=== PATIENT | male | born 1955 | race African-American/Black ===

== ENCOUNTER 2021-08-08 22:10 | Emergency (ER) | payer MEDICAID ==
[~2021-08-08] VITALS: Ht 198.1 cm; Wt 118.0 kg
[2021-08-09 03:13] LABS: CLARITY URINE CLOUDY (CLEAR); COLOR URINE DARK YELLOW (YELLOW); KETONES URINE TRACE (NEGATIVE); LEUKOCYTE ESTERASE URINE TRACE (NEGATIVE); NITRITE URINE NEGATIVE (NEGATIVE); OCCULT BLOOD URINE 3+ (NEGATIVE); PROTEIN URINE 2+ (NEGATIVE); SPECIFIC GRAVITY URINE 1.013 (1.005-1.030); UROBILINOGEN URINE 0.2 E.U./dL (0.2-1.0)
[2021-08-09 03:52] LABS: BASOPHILS % 0.5 % (0.0-2.0); HEMATOCRIT. 41.6 % (42.0-52.0); HEMOGLOBIN. 14.1 g/dL (14.0-18.0); LYMPHOCYTES % 7.2 % (20.0-50.0); MEAN CORPUSCULAR HEMOGLOBIN 31.2 pg (28.0-32.0); MEAN CORPUSCULAR VOLUME 92.4 fL (80.0-94.0); MEAN PLATELET VOLUME 9.4 fl (7.4-10.4); MONOCYTES % 4.3 % (2.0-8.0); PLATELET 223 x1000/uL (130-400); RED BLOOD CELL COUNT 4.51 mill/uL (4.7-6.1); RED CELL DISTRIBUTION WIDTH 15.6 % (11.6-14.6)
[2021-08-09 04:49] LABS: CHLORIDE 109 mEq/L (98-107)
[2021-08-09] MEDS ORDERED: CIPR-263 MT (05:17)
[2021-08-09 05:39] VITALS: BP 140/87
== END 2021-08-09 05:41 | disposition home or self-care (01) ==
LOC: ER 22:10
DX: R33.9 Retention of urine, unspecified (principal); E87.5 Hyperkalemia; Z96.649 Presence of unspecified artificial hip joint
CPT/HCPCS: 36415; 80048; 81003; 85025; 99283; A4315